=== PATIENT | male | born 1955 | race Caucasian/White ===

== ENCOUNTER 2017-08-18 09:20 | Emergency (ER) | payer SELFPAY ==
[2017-08-18] MEDS ORDERED: Naproxen TAB* 250 MG PO ONE (11:18)
--- NOTE | 2017-08-18 11:39 | UC ---
Lower Extremity/Ankle HPI - HPI Summary HPI Summary: 62 year old male with history of HTN here with left leg pain for one month. Reports symptoms sharp over thigh and calf. Sharp and achy. Worsens with movement, improved with rest. His pmd checked for gout and ordered XR for him. Patient reports he has been taking aspirin 325mg (3 pills per day) for one week. He came here for second opinion. No other complaints. NO DVT risk factors. Non-smoker - History of Current Complaint Chief Complaint: UCLowerExtremity Stated Complaint: LEG PAIN Time Seen by Provider: 08/18/17 10:29 Onset/Duration: Gradual Onset, Lasting Minutes Severity Initially: Mild Aggravating Factor(s): Ambulation Alleviating Factor(s): Rest - Allergies/Home Medications Allergies/Adverse Reactions: Allergies Allergy/AdvReac Type Severity Reaction Status Date / Time No Known Allergies Allergy Verified 07/01/16 07:12 Home Medications: Home Medications Aspirin TAB* [Aspirin 325 MG TAB*] 975 mg PO DAILY 08/18/17 [History Confirmed 08/18/17] PMH/Surg Hx/FS Hx/Imm Hx - Surgical History Surgical History: None - Family History Known Family History: Positive: Hypertension - Social History Alcohol Use: None Substance Use Type: None Smoking Status (MU): Never Smoked Tobacco - Immunization History Most Recent Influenza Vaccination: does not get Most Recent Tetanus Shot: UTD Review of Systems Constitutional: Negative Skin: Negative Eyes: Negative ENT: Negative Respiratory: Negative Cardiovascular: Negative Gastrointestinal: Negative Genitourinary: Negative Motor: Negative, Other Neurovascular: Negative Musculoskeletal: Calf Tenderness Neurological: Negative Psychological: Negative All Other Systems Reviewed And Are Negative: Yes Physical Exam Triage Information Reviewed: Yes Appearance: Well-Appearing, No Pain Distress, Well-Nourished Vital Signs: Initial Vital Signs Temp 36.4 C 08/18/17 09:49 Pulse 86 08/18/17 09:49 Resp 18 08/18/17 09:49 BP 150/104 08/18/17 09:49 Pulse Ox 98 08/18/17 09:49 Eye Exam: Normal Cardiovascular: Positive: RRR, No Murmur Abdomen Description: Positive: Nontender Musculoskeletal: Positive: Strength Intact, ROM Intact, No Edema Neurological: Positive: Alert Skin Exam: Normal Diagnostics - Radiology No standard instances Xray Interpretation: Positive (See Comments) - Osteoarthritis on Knee XR. calcification On exam no concern for FB Radiology Interpretation Completed By: ED Physician Lower Extremity Course/Dx - Course Course Of Treatment: Left let pain with normal exam here. Signs and symptoms with claudication. Will do XR, and follow up with PMD. - Differential Dx/Diagnosis Differential Diagnosis/HQI/PQRI: Arthritis, Gout Provider Diagnoses: Left leg claudication. Osteoarthritis Discharge - Discharge Plan Condition: Good Disposition: HOME Prescriptions: Naproxen [Naproxen EC 500 MG TAB] 500 mg PO BID 10 Days #20 tab Patient Education Materials: Osteoarthritis (ED) Referrals: José Frost MD [Primary Care Provider] - Additional Instructions: Follow up with your primary care doctor
--- NOTE | 2017-08-18 12:17 | RAD ---
INDICATION: Left knee pain. TECHNIQUE: 4 views of the left knee were obtained. FINDINGS: The bones are in normal alignment. No joint effusion or fracture is seen. Joint spaces appear maintained. IMPRESSION: NEGATIVE EXAM.
[2017-08-18 12:19] VITALS: BP 139/98
--- NOTE | 2017-08-18 12:19 | RAD ---
INDICATION: Left femur injury. TECHNIQUE: 2 views of the left femur were obtained. FINDINGS: The bones are normal alignment. No significant focal osseous abnormality or fracture is seen. There is mild to moderate osteoarthritic change in the left hip. There is a 5 x 3 mm superficial calcific density which projects over the soft tissues along the medial aspect of the thigh possibly representing a foreign body although nonspecific. IMPRESSION: 1. MILD TO MODERATE OSTEOARTHRITIC CHANGE IN THE LEFT HIP. 2. SMALL CALCIFIC DENSITY WHICH PROJECTS OVER THE SUPERFICIAL SOFT TISSUES ALONG THE MEDIAL ASPECT OF THE THIGH POSSIBLY REPRESENTING A FOREIGN BODY.
== END 2017-08-18 12:45 | disposition home or self-care (01) ==
LOC: UCEAST 09:20
DX: I73.9 Peripheral vascular disease, unspecified (principal); M16.12 Unilateral primary osteoarthritis, left hip; R93.7 Abnormal findings on diagnostic imaging of other parts of musculoskeletal system; I10 Essential (primary) hypertension
CPT/HCPCS: 99212; A9270-GY; G0463

== ENCOUNTER 2018-03-29 07:02 | Emergency (ER) | payer OTHER ==
[2018-03-29 07:16] VITALS: BP 148/87
--- NOTE | 2018-03-29 07:27 | UC ---
Oliver Maher SooYoung, scribed for Junior Oleary MD on 03/29/18 at 0720 . Skin Complaint HPI - HPI Summary HPI Summary: A 62 y/o M presents to [facility] [place] with c/o swollen lump on inner R thigh onset 3 days ago. Associated sx: erythema. Pt notes shaving the area after he noticed the change. He thinks it may have been an ingrown hair originally. NKA. No PMHx MRSA. - History of Current Complaint Chief Complaint: UCSkin Stated Complaint: SKIN COMPLAINT Hx Obtained From: Patient Onset/Duration: Lasting Days, Still Present Timing: Constant Onset Severity: Mild Current Severity: Moderate Pain Intensity: 2 Pain Scale Used: 0-10 Numeric Location: Other - inner R thigh Character: Swelling, Redness - Allergy/Home Medications Allergies/Adverse Reactions: Allergies Allergy/AdvReac Type Severity Reaction Status Date / Time No Known Allergies Allergy Verified 03/29/18 07:16 Review of Systems Constitutional: Negative Skin: Other - erythema, edema to R inner thigh All Other Systems Reviewed And Are Negative: Yes PMH/Surg Hx/FS Hx/Imm Hx Previously Healthy: Yes Cardiovascular History: Hypertension - Surgical History Surgical History: None - Family History Known Family History: Positive: Hypertension - Social History Occupation: Retired Lives: Alone Alcohol Use: None Substance Use Type: None Smoking Status (MU): Never Smoked Tobacco - Immunization History Most Recent Influenza Vaccination: does not get Most Recent Tetanus Shot: UTD Physical Exam - Summary Physical Exam Summary: VITAL SIGNS: Reviewed. GENERAL: Patient is a well-developed and nourished MALE who is lying comfortable in the stretcher. Patient is not in any acute respiratory distress. HEAD AND FACE: Normocephalic EYES: PERRLA, EOMI x 2. EARS: Hearing grossly intact. MOUTH: Oropharynx within normal limits. NECK: Supple, trachea is midline, no adenopathy, no JVD, no carotid bruit. CHEST: Symmetric, no tenderness at palpation LUNGS: Clear to auscultation bilaterally. No wheezing or crackles. CVS: Regular rate and rhythm, S1 and S2 present, no murmurs or gallops appreciated. ABDOMEN: Soft, non-tender. Bowel sounds are normal. No abdominal abnormal pulsations. EXTREMITIES: Full ROM in all major joints, no edema, no cyanosis or clubbing. NEURO: Alert and oriented x 3. No acute neurological deficits. Speech is normal and follows commands. SKIN: Dry and warm, erythema 6x6 with no central clearing Triage Information Reviewed: Yes Vital Signs: Initial Vital Signs Temp 98 F 03/29/18 07:10 Pulse 80 03/29/18 07:10 Resp 18 03/29/18 07:10 BP 148/87 03/29/18 07:10 Pulse Ox 96 03/29/18 07:10 Vital Signs Reviewed: Yes Course/Dx - Course Course Of Treatment: A 62 y/o M presents to E with c/o swollen lump on inner R thigh onset 3 days ago. Associated sx: erythema. Pt notes shaving the area after he noticed the change. He thinks it may have been an ingrown hair originally. NKA. No PMHx MRSA. Exacerbation has a cellulitis. There was no particular movement. The patient was given a prescription for Bactrim. Patient will follow with primary care physician in the next 2-3 days. She was explained that if he forms a abscess WORSE he should return to the urgent care for nursing of an abscess. He understands and agrees. He is hemodynamically stable alert and oriented 3. Patient was instructed to return to the urgent care or go to ER immediately if any of the symptoms return or worsens. Plan of care was discussed with the patient, and patient understands and agrees. All questions were answered to patient satisfaction. There were no further complaints or concerns. Pt is hemodynamically stable, alert and oriented x3. - Diagnoses Provider Diagnoses: Cellulitis Discharge - Sign-Out/Discharge Documenting (check all that apply): Patient Departure - Discharge Plan Condition: Stable Disposition: HOME Prescriptions: Sulfamethox/Trimethoprim DS* [Bactrim DS 800/160 TAB*] 1 tab PO BID #20 tab Patient Education Materials: Cellulitis (ED) Referrals: José Frost MD [Primary Care Provider] - Additional Instructions: Take medications as instructed Increase your fluid intake Return to the if symptoms worsen - Billing Disposition and Condition Condition: STABLE Disposition: Home The documentation as recorded by the Oliver milligan SooYoung accurately reflects the service I personally performed and the decisions made by me, Junior Oleary MD.
== END 2018-03-29 07:31 | disposition home or self-care (01) ==
LOC: UCEAST 07:02
DX: L03.116 Cellulitis of left lower limb (principal); I10 Essential (primary) hypertension
CPT/HCPCS: 99212; G0463